=== PATIENT | female | born 1950 | race Caucasian/White ===

== ENCOUNTER → 2016-06-25 | Outpatient (CLI) | payer OTHER, MEDICARE | LOC: FIMAGING 07:05 | PROVIDERS: ATTEND Orthopaedic Surgery Hand Surgery | DX: M65.28 Calcific tendinitis, other site (principal); M19.032 Primary osteoarthritis, left wrist ==

== ENCOUNTER → 2016-07-11 | Outpatient (CLI) | payer OTHER, MEDICARE | LOC: FIMAGING 13:39 | DX: Z12.31 Encounter for screening mammogram for malignant neoplasm of breast (principal); Z80.3 Family history of malignant neoplasm of breast | CPT/HCPCS: G0202 ==

== ENCOUNTER → 2016-07-24 | Outpatient (CLI) | payer OTHER, MEDICARE | LOC: BRMIMAGING 12:57 | PROVIDERS: ATTEND Internal Medicine | DX: D25.9 Leiomyoma of uterus, unspecified (principal) | CPT/HCPCS: 76856-PO ==

== ENCOUNTER → 2017-05-29 | Outpatient (CLI) | payer OTHER, MEDICARE | LOC: CIMAGING 13:07 | PROVIDERS: ATTEND Internal Medicine | DX: R91.1 Solitary pulmonary nodule (principal); M89.8X8 Other specified disorders of bone, other site; Z87.891 Personal history of nicotine dependence | CPT/HCPCS: 71250-PO ==

== ENCOUNTER → 2018-03-24 | Outpatient (CLI) | payer OTHER, MEDICARE ==
[~2018-03-24] MED LIST: IOPAMIDOL (ISOVUE-300) 150 ML BTL ONE
== END ==
LOC: FIMAGING 08:21
PROVIDERS: ATTEND Urology
DX: N32.9 Bladder disorder, unspecified (principal)
CPT/HCPCS: 74178; Q9967; 82565-PO

== ENCOUNTER → 2018-09-03 | Outpatient (CLI) | payer OTHER, MEDICARE | LOC: EMCIMAGING 13:12 | PROVIDERS: ATTEND Registered Nurse | DX: R91.1 Solitary pulmonary nodule (principal) | CPT/HCPCS: 71250-PN ==

== ENCOUNTER → 2018-09-21 | Outpatient (CLI) | payer OTHER, MEDICARE | LOC: FIMAGING 12:25 ==

== ENCOUNTER 2018-10-09 01:19 | Observation (INO) | payer OTHER, MEDICARE | END 2018-10-09 16:24 | disposition home or self-care (01) | LOC: FSGY 06:23 → F3E 07:14 → F1N 10:30 ==